=== PATIENT | female | born 1940 | race Caucasian/White ===

== ENCOUNTER 2017-11-25 02:13 | Emergency (ER) | payer OTHER, MEDICAID ==
[~2017-11-25] VITALS: Ht 165.1 cm; Wt 138.3 kg
--- NOTE | 2017-11-25 02:13 | NUR ---
[id number] FROM HOME C/C CALLED 911 FOR SOB X 2 DAYS, WORSE TODAY. PT ON NC5L/M WITH SP02 OF 96% WHICH SHE USUALLY IS ON 3-4 LPM. BS EN ROUTE WAS 119. PT IS TACHYCARDIC AND HYPERTENSIVE UPON ARRIVAL WITH IV PLACED BY EMS ON LEFT HAND. SKIN WARM AND INTACT. PT IS ALERT AND ORIENTED X4 ABLE TO MAKE NEEDS KNOWN
--- NOTE | 2017-11-25 02:14 | NUR ---
ER MD DIAZ AT BEDSIDE
[2017-11-25] MEDS ORDERED: ASPIRIN 81 MG TAB.CHEW ONE (02:30)
[2017-11-25] MEDS ORDERED: NITROGLYCERIN PACKET 1 GM PACKET ONE (02:30)
[2017-11-25] MEDS ORDERED: ASPIRIN 81 MG TAB.CHEW PO ONE (02:30)
[2017-11-25] MEDS ORDERED: NITROGLYCERIN PACKET 1 GM PACKET TD ONE (02:30)
--- NOTE | 2017-11-25 02:40 | NUR ---
RT AT BEDSIDE FOR ABG
--- NOTE | 2017-11-25 02:40 | NUR ---
BLOOD SENT TO LAB
[2017-11-25 02:49] LABS: BASOPHILS % (AUTO) 0.1 % (0.0-2.0); EOSINOPHILS % (AUTO) 0.8 % (0.0-6.0); HEMATOCRIT 40 % (33-45); HEMOGLOBIN 12.2 g/dL (11.5-14.8); LYMPHOCYTES # (AUTO) 1.1 /CMM (0.8-4.8); MEAN CORPUSCULAR HEMOGLOBIN 29 PG (26.0-33.0); MEAN CORPUSCULAR HGB CONC 31 g/dl (31.0-36.0); MEAN CORPUSCULAR VOLUME 96 fL (82-100); MONOCYTES # (AUTO) 0.1 /CMM (0.1-1.30); MONOCYTES % (AUTO) 0.9 % (2.0-12.0); NEUTROPHILS % (AUTO) 88.2 % (43.0-81.0); PLATELET COUNT (AUTO) 146 /CMM (150-450); RDW COEFFICIENT OF VARIATION 15.6 (11.5-15.0); RED BLOOD CELL COUNT(AUTO) 4.16 MIL/uL (4.0-5.2); WHITE BLOOD COUNT (AUTO) 11.3 K/uL (4.3-11.0)
[2017-11-25 02:50] LABS: ABG BASE EXCESS 11.7 mmol/L; ABG OXYGEN SATURATION 93.1 % (92.0-98.5); ABG PCO2 70.8 mmHg (35.0-45.0); ABG PH 7.369 (7.350-7.450); ABG PO2 71.6 mmHg (75.0-100.0); AaDO2 161.4 mmHg; MetHb 0.5 % (0.0-1.5); O2Hb 90.8 % (94.0-97.0); SITE, ABG Left Radial; VENT MODE, BG Nasal Cannula
[2017-11-25 03:01] LABS: TROPONIN I < 0.017 ng/mL (0.00-0.056)
[2017-11-25 03:07] LABS: ALANINE AMINOTRANSFERASE 17 U/L (12-78); ALBUMIN 2.9 g/dL (3.4-5.0); ALKALINE PHOSPHATASE 99 U/L (46-116); ASPARTATE AMINOTRANSFERASE 24 U/L (15-37); B-TYPE NATRIURETIC PEPTIDE 2274 PG/ML (0-125); BILIRUBIN,DIRECT 0.3 mg/dL (0.0-0.2); BILIRUBIN,TOTAL 1.1 mg/dL (0.2-1.0); CALCIUM, SERUM 8.6 mg/dL (8.5-10.1); CARBON DIOXIDE 44 mmol/L (21-32); CHLORIDE 102 mmol/L (98-107); CREATININE 0.9 mg/dL (0.6-1.3); GLUCOSE 92 mg/dL (74-106); SODIUM SERUM 144 mmol/L (136-145); TOTAL PROTEIN, SERUM 6.9 g/dL (6.4-8.2); UREA NITROGEN, BLOOD 17 mg/dL (7-18)
[2017-11-25] MEDS ORDERED: ENOXAPARIN SODIUM 30 MG/0.3 ML DISP.SYRIN SQ ONE (03:30)
[2017-11-25] MEDS ORDERED: FUROSEMIDE 40 MG/4 ML VIAL IV ONE (03:30)
[2017-11-25] MEDS ORDERED: FUROSEMIDE 40 MG/4 ML VIAL ONE (03:38)
[2017-11-25] MEDS ORDERED: ENOXAPARIN SODIUM 60 MG/0.6 ML DISP.SYRIN SQ ONE (03:38)
--- NOTE | 2017-11-25 03:42 | NUR ---
VERBAL ORDER RECIEVED FROM DR. DIAZ TO GIVE LOVENOX IV WITHOUT COAG RESULTS. VERIFIED WITH TRACEY NG.
--- NOTE | 2017-11-25 03:42 | NUR ---
ER MD DIAZ MADE AWARE THAT ONLY D-DIMER WAS RESULTED AND PT/PTT/INR WAS NOT TAKEN. ER MD DIAZ STATED HE WAS OKAY GIVING 120MG OF LOVENOX SUBQ. MEDICATION VERIFIED WITH TRACEY PEREZ.
--- NOTE | 2017-11-25 04:26 | NUR ---
650 CC OF URINE NOTED FROM [facility]
[2017-11-25] MEDS ORDERED: HYDROCODONE/APAP 10/325MG 1 EA TABLET PO ONE (05:00)
[2017-11-25] MEDS ORDERED: HYDROCODONE/APAP 10/325MG 1 EA TABLET ONE (05:01)
--- NOTE | 2017-11-25 06:13 | NUR ---
[facility] [phone]; Miko CARRILLO ETA [id number].
--- NOTE | 2017-11-25 07:59 | NUR ---
CALLED FOR FOOD TRAY.
[2017-11-25 08:28] VITALS: BP 128/65
--- NOTE | 2017-11-25 08:38 | NUR ---
PT ACCEPTED AT [facility] NUMBER FOR REPORT, . DR GUERRIER.
--- NOTE | 2017-11-25 09:31 | NUR ---
REPORT GIVEN TO JUSTINE WEBB OF [facility].
--- NOTE | 2017-11-25 09:52 | NUR ---
REPORT GIVEN TO [facility] FOR TRANSPORT.
== END 2017-11-25 10:03 | disposition short-term general hospital (02) ==
LOC: ER 02:15
DX: J81.0 Acute pulmonary edema (principal); R79.1 Abnormal coagulation profile; E66.01 Morbid (severe) obesity due to excess calories; E87.2 Acidosis; E11.9 Type 2 diabetes mellitus without complications; I11.0 Hypertensive heart disease with heart failure; I50.9 Heart failure, unspecified
CPT/HCPCS: 36415; 36600 ×2; 51701; 71045; 80048; 80076; 82803; 83880; 84484; 85025; 85378; 93005; 93970; 94660; 96372; 96374; 99285; A4606; J1650; J1940; Z7610